=== PATIENT | female | born 1970 | race Caucasian/White ===

== ENCOUNTER → 2020-01-14 | Outpatient (CLI) | payer OTHER ==
--- NOTE | 2020-01-14 11:04 | ER RDC ASSESSMENT REPORT ---
Intake - In the Last 14 days Have you traveled outside [place]?: No Have you been in close contact with someone CONFIRMED: No Worked in Healthcare?: No - Symptoms Subjective Fever(Seth feverish): Yes Chills: No Muscule Aches: Yes Runny Nose: Yes Sore Throat: No Cough (New or worsening chronic cough): Yes Shortness of breath: Yes Nausea or Vomiting: No Headache: No Abdominal Pain: No Diarrhea(3 or more loose stools in last 24 hours): Yes - Do you have any of the following Chronic lung disease: Asthma or emphysema or COPD: No Cystic Fibrosis: No Diabetes: No High Blood Pressure: Yes Cardiovascular Disease: Yes Chronic Kidney Disease: No Chronic Liver Disease: No Chronic blood disorder like Sickle Cell Disease: No Weak immune system due to disease or medication: No Neurologic condition that limits movement: No Developmental delay - Moderate to Severe: No Recent (within past 2 weeks) or current : No Morbid Obesity (>100 pounds over ideal weight): No - Objective Temperature: 98.2 F Pulse Rate: 65 Respiratory Rate: 14 Blood Pressure: 121/65 O2 Sat by Pulse Oximetry: 100 Objective: Given above, testing performed: FLU A/B, Strep all negative COVID sent to [facility] If Testing Performed: Test Specimen Type Sent to Disposition: Home; Selfcare General - General Chief Complaint: Flu Symptoms Time Seen by Provider: 01/14/20 11:00 Mode of Arrival: Ambulatory Information source: Patient - HPI Notes: 49-year-old female presents to [facility] clinic for COVID testing. She was referred over by urgent care and then the COVID-19 hotline. No known exposure to COVID positive patient patient does work at [employer] and has [id number] contact with a large amount of people daily. She reports onset of symptoms was January 09. Primary complaint is discomfort in the right lower chest, originally was only present with deep inspiration, but now notes it is persistent- not sure if it is just "muscle pain". She reports no known fevers as she has not checked temperature; however, she has felt flushed on several occasions. Patient additionally reports intermittent dry cough, myalgia, rhinorrhea, mild dyspnea on exertion (although this sounds more related to the pain- not taking deep breaths), loss of smell, and diarrhea. Denies chills, sore throat, nausea vomiting, headache and abdominal pain. No medical history includes hypertension, hyperlipidemia, elevated LFTs currently under evaluation, and current smoker 1/2 pack/day. She does report she was started on course of tessalon perles, albuterol inhaler, z-pack and prednisone over the weekend by urgent care. - Related Data Allergies/Adverse Reactions: No Known Allergies Allergy (Verified 12/19/13 19:25) Past Medical History - General Information source: Patient - Social History Smoking Status: Current Every Day Smoker Cigarette use (# per day): Yes - 10 Smoking Education Provided: Yes Family History: Reviewed & Not Pertinent - Past Medical History Cardiac Medical History: Reports: Hx Hypercholesterolemia, Hx Hypertension Pulmonary Medical History: Reports: None EENT Medical History: Reports: Other - allergis rhinitis Neurological Medical History: Reports: None Endocrine Medical History: Reports: None Renal/ Medical History: Reports: None Malignancy Medical History: Reports: None Other: elevated liver enzymes- unknown etiology, currently under workup Skin Medical History: Reports None Psychiatric Medical History: Reports: None Traumatic Medical History: Reports: None Infectious Medical History: Reports: None Past Surgical History: Reports: Hx Section Physical Exam - Vital signs Interpretation: Normal - General General appearance: Appears well In distress: None Notes: PHYSICAL EXAMINATION: GENERAL: Well-appearing and in no acute distress. HEAD: Atraumatic, normocephalic. EYES: sclera anicteric, conjunctiva are normal. ENT: nares patent. Moist mucous membranes. NECK: Normal range of motion, supple without lymphadenopathy LUNGS: CTAB and equal. No wheezes rales or rhonchi. HEART: Regular rate and rhythm without murmurs ABDOMEN: Soft, nontender, normal bowel sounds, no guarding. EXTREMITIES: Normal range of motion, no pitting edema. No cyanosis. NEUROLOGICAL: Cranial nerves grossly intact. Normal speech. PSYCH: Normal mood, normal affect. SKIN: Warm, Dry, normal turgor, no rashes or lesions noted Patient Education/Counseling Counseling/Education: Patient presents with upper respiratory symptoms worrisome for possible Covid 19. Patient does not have emergency worrying symptoms such as difficulty breathing, shortness of breath, chest pain, pressure, confusion or cyanosis. Patient appears suitable for discharge as patient's vital signs are stable and patient is nontoxic in appearance. Good return precautions have been discussed with patient, patient verbalized understanding and is agreeable with discharge plan of care at this time. Guidance for worsening S/SX: As a person under investigation for Covid 19, the [facility] of Health and Human Services, division of public health advises you to adhere to the following guidance until your test results are reported to you. If your test result is positive, you will receive additional information from your provider and your local health department at that time. Remain at home until you are cleared by the health provider or public health authorities. Keep a log of visitors to your home, notify any visitors to your home of your isolation status. If you plan to move to a new address or leave the [facility], notify the local health department in your County. Call your doctor or seek care if you have an urgent medical need. Before seeking medical care, call ahead to get instructions from the provider before arriving at the medical office clinic or hospital. Notify them that you are being tested for the virus that causes Covid 19 so that arrangements can be made, as necessary, to prevent transmission to others in the healthcare setting. Next, notify the local health department in your county. If a medical emergency arises and you need to call 911, inform the first responders that you are being tested for the virus that causes Covid 19. Next, notify the local health department in your county. RDC Discharge - Discharge Clinical Impression: COVID 19 screen Condition: Stable Disposition: Home; Selfcare
[2020-01-14 11:18] VITALS: BP 121/65
[2020-01-14 11:47] LABS: A TYPE INFLUENZA AG NEGATIVE (NEGATIVE); B INFLUENZA AG NEGATIVE (NEGATIVE)
== END ==
LOC: RDC 10:34
PROVIDERS: ATTEND Registered Nurse
DX: J30.9 Allergic rhinitis, unspecified (principal); Z20.828 Contact with and (suspected) exposure to other viral communicable diseases; R06.02 Shortness of breath; R05 Cough; R09.89 Other specified symptoms and signs involving the circulatory and respiratory systems; R19.7 Diarrhea, unspecified; I10 Essential (primary) hypertension; R07.89 Other chest pain; M79.10 Myalgia, unspecified site; R43.9 Unspecified disturbances of smell and taste; F17.210 Nicotine dependence, cigarettes, uncomplicated; E78.5 Hyperlipidemia, unspecified; R79.89 Other specified abnormal findings of blood chemistry
CPT/HCPCS: 87070; 87635; 87804; 87880; 99201